=== PATIENT | female | born 1990 | race Caucasian/White ===

== ENCOUNTER 2017-09-30 21:13 | Emergency (ER) | payer BC ==
--- NOTE | 2017-09-30 21:16 | ER Report ---
History and Physical Time Seen By MD: 21:15 HPI/ROS CHIEF COMPLAINT: Right ring finger nail injury HISTORY OF PRESENT ILLNESS: 27-year-old female presents a ambulatory ER with avulsion of her right ring fingernail. Patient was pulling on her dog collar and it caused her nail to roll back, midway down the nail bed. Allergies: Coded Allergies: Sulfa (Sulfonamide Antibiotics) (Verified Allergy, Severe, hives, 09/30/17) cefaclor (Unverified Allergy, Severe, hives, 09/30/17) pneumococcal vaccine (Unverified Allergy, Severe, hives, swollen leg, 09/30) doxycycline (Unverified Adverse Reaction, Unknown, sunburn, 09/30/17) Home Meds Active Scripts Levothyroxine Sodium (LEVOTHYROXINE SODIUM) 100 Mcg Tablet, 100 MCG PO DAILY, # 60 TAB 0 Refills Prov:ROSANGELA MAGALLANES MD 09/30/17 Norgestimate-Ethinyl Estradiol (TRI-SPRINTEC) 1 Each Tablet, 1 EACH PO DAILY, # 30 TAB 11 Refills Prov:ROSANGELA MAGALLANES MD 06/27/17 Discontinued Scripts Meloxicam (MELOXICAM) 15 Mg Tablet, 15 MG PO QDAY, #14 TAB Take half to one tab daily Prov:ROSANGELA MAGALLANES MD 09/30/17 Meloxicam (MELOXICAM) 15 Mg Tablet, 0.5-1 TAB PO QDAY, #14 TAB Prov:ROSANGELA MAGALLANES MD 09/30/17 Levothyroxine Sodium (LEVOTHYROXINE SODIUM) 88 Mcg Tablet, 88 MCG PO QDAY, #90 TAB 1 Refill Prov:ROSANGELA MAGALLANES MD 05/14/17 Methylprednisolone (METHYLPREDNISOLONE) 4 Mg Tab.ds.pk, 4 MG PO DIRECTED, #1 PACK Prov:LUDY OLIVA MD 09/27/16 Tretinoin 0.025% Cream (TRETINOIN 0.025% CREAM) 20 Gm Cream..g., 20 GM TP DAILY , #1 TUB 2 Refills Apply thin layer at night half an hour after face has been washed and dried. If redness , switch to every other day. Prov:ROSANGELA MAGALLANES MD 09/14/16 Past Medical/Surgical History Past Medical History Integumentary: Reports hx of: acne other integumentary hx (hives age 11, no etiology identified) Endocrine: Reports hx of: hypothyroidism Past Surgical History HEENT: Reports hx of: tonsillectomy (1995) Gastrointestinal: Reports hx of: appendectomy (2008) Reviewed Nurses Notes: Yes Old Medical Records Reviewed: Yes Smoking Status: Never Smoker Constitutional Vital Sign - Last 24 Hours 09/30/17 09/30/17 09/30/17 09/30/17 21:17 21:18 21:23 21:28 Temp 98.6 Pulse 83 80 73 70 Resp 20 B/P (MAP) 135/91 Pulse Ox 94 96 98 O2 Delivery Room Air 09/30/17 09/30/17 09/30/17 09/30/17 21:33 21:38 21:43 21:48 Pulse 65 80 72 78 B/P (MAP) 109/85 (93) Pulse Ox 97 95 95 Physical Exam General appearance: Mild distress Respiratory: Chest is non tender, lungs are clear to auscultation. Cardiac: Regular rate and rhythm Extremities: [ ] [DIFFERENTIAL DIAGNOSIS: After history and physical exam differential diagnosis was considered for] [ ] Medical Decision Making ED Course/Re-evaluation ED Course Patient was admitted to an examination room. H&P was done. The differential diagnoses was considered. On clinical examination. Patient has an inverted avulsed nail of the right ring finger. Patient's finger was anesthetized with a digital block at her request with lidocaine 1%. The nail was inverted back to normal position. She did express some discomfort with this. It was applied around the rim of the nail. And a Band-Aid was applied. She is advised to wear a Band-Aid for protection for several weeks. Decision to Disposition Date: Sep 30, 2017 Decision to Disposition Time: 21:32 Depart Departure Latest Vital Signs Vital Signs Date Time Temp Pulse Resp B/P (MAP) Pulse Ox O2 Delivery O2 Flow Rate FiO2 09/30/17 21:48 78 109/85 (93) 95 09/30/17 21:17 98.6 20 Room Air Impression: Primary Impression: Fingernail avulsion, partial Condition: Improved Disposition: HOME OR SELF-CARE Referrals: ROSANGELA MAGALLANES MD (PCP) Patient Instructions: Avulsed Nail Additional Instructions: Keep fingernail covered with a band age Apply a thin layer of antibiotic ointment around the rim of the nail to prevent infection Follow-up with primary care if unimproved in 5-7 days Problem Qualifiers Primary Impression: Fingernail avulsion, partial Encounter type: initial encounter Qualified Codes: S61.309A - Unspecified open wound of unspecified finger with damage to nail, initial encounter SANDRA QUEZADA DO Sep 30, 2017 21:15
[2017-09-30 21:48] VITALS: BP 109/85
== END 2017-09-30 21:49 | disposition home or self-care (01) ==
LOC: ER 21:30
DX: S61.304A Unspecified open wound of right ring finger with damage to nail, initial encounter (principal)
CPT/HCPCS: 99283

== ENCOUNTER → 2017-09-30 | Outpatient (CLI) | payer BC ==
[~2017-09-30] MED LIST: FLU45SYR25 IM ONLY; LEVO-3 PO; LEVO50TA80 PO; LEVO88TA45 PO; MELO-207 PO; METH4TAB66 PO; NORG1TAB75 PO; SULF-198 PO; TRET20CR37 TP
== END ==
LOC: LAB 09:39
PROVIDERS: ATTEND Emergency Medicine
DX: E03.9 Hypothyroidism, unspecified (principal)
CPT/HCPCS: 36415; 84443